=== PATIENT | male | born 1955 | race Caucasian/White ===

== ENCOUNTER 2022-07-16 00:45 | Day surgery (SDC) | payer MEDICARE, SELFPAY ==
[2022-07-16] VITALS (10 sets, daily range): BP systolic 114–133; BP diastolic 75–86; PULSE 50–68; RESP 13–23; TEMP 36.2–36.6; O2SAT 96–99; BMI 35.2
[2022-07-16 09:12] LABS: Basophils Absolute Auto 0.1 K/mm3 (0.0-0.1); Basophils Percent Auto 0.6 % (0.2-1.2); Eosinophils Absolute Auto 0.3 K/mm3 (0-0.3); Eosinophils Percent Auto 3.9 % (0-4.4); Hemoglobin 15.2 g/dL (14.0-18.0); Immature Granulocyte Absolute 0.02 K/mm3 (0.00-0.031); Immature Granulocyte Percent A 0.2 % (0-0.5); Lymphocytes Absolute Auto 2.09 K/mm3 (0.9-3.2); Lymphocytes Percent Auto 25.5 % (18.3-44.2); Mean Corpuscular Hemoglobin 30.1 pg (26-34); Mean Corpuscular Volume 91.1 fl (80-100); Mean Platelet Volume 9.9 fl (7.4-10.4); Monocytes Absolute Auto 0.7 K/mm3 (0.1-0.6); Monocytes Percent Auto 8.9 % (2.6-8.5); Neutrophils Percent Auto 60.9 % (45.5-73.1); Platelet Count Result 214 k/mm3 (150-375); Red Blood Count 5.05 M/mm3 (4.6-6.20); Red Cell Distribution Width 13.1 % (11.5-14.5); White Blood Count 8.2 K/mm3 (4.5-10.0)
[2022-07-16 09:19] LABS: Anion Gap 14 mmol/L (8-16); Blood Urea Nitrogen 19 mg/dL (9-20); Calcium 8.7 mg/dL (8.4-10.2); Carbon Dioxide 25 mmol/L (22-30); Chloride 105 mmol/L (98-107); Estimated CRCL calculation 89 ml/min; Estimated Glomerular Filt Rate > 60; Glucose 117 mg/dL (65-110); Sodium 144 mmol/L (137-145)
--- NOTE | 2022-07-16 10:39 | WPDCARDPROC ---
Cardiac Cath Procedure Note Date of procedure:: 07/16/22 Performing physician:: Mike Buenrostro MD Indication:: Abnormal nuclear stress test coronary artery disease with previous PCI Brief clinical history:: this is a 66-year-old man with known coronary disease previous interventional revascularization. He is reporting symptoms of exertional dyspnea occasionally with some chest pain which seems to occur in in consistent fashion. A nuclear stress test was done in the outpatient setting which demonstrated apical lateral ischemic defect prompting recommendation for follow-up angiography. Procedure Procedure performed:: Left ventriculogram coronary angiogram Angio-Seal to right femoral artery Sedation/Medication given:: fentanyl 50 mg Versed 2 mg case start time 10:13 a.m. case end time 10:32 a.m. sedation provided by Anay Rice RN, trained observer Access site:: right femoral artery Estimated blood loss:: 50 cc Procedure note:: patient was brought to the cardiac catheterization lab in the postabsorptive state where the right femoral triangle was prepared and draped in the usual fashion. Anesthesia was provided with 1% lidocaine infiltrated locally. Using the modified Seldinger technique the femoral artery was punctured and a 5 [place] vascular sheath was placed. After this left heart catheterization was carried out using a 5 [place] angled pigtail catheter for measurement of left-sided hemodynamics and to inject in the left ventriculogram in the are AO projection. Following this a 5 [place] FL4 catheter was used to engage inject the left coronary artery in multiple projections and then a 5 [place] JR4 catheter was used engage inject the right coronary artery in multiple projections. The cineangiograms were then reviewed. The case was then terminated. An angiogram was done of the femoral artery through the sheath after which an Angio-Seal device was deployed with a good hemostatic result. Procedure was well tolerated and there were no apparent complications. 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 Findings:: Hemodynamics: Central aortic pressure was 118 over 72 left ventricle 118 over 8 end-diastolic pressure 18. No gradient on the aortic valve was seen on pullback. Left ventricle: The left ventricle is normal in size all segments contract appropriately the global ejection fraction is 55-60% by visual estimation the left main coronary artery is medium in caliber and is nicely patent the left anterior descending is a medium caliber artery extending down to the apex. There is previously deployed stent material in the LAD and this appears to be nicely patent. There is an eccentric stenosis in the LAD just proximal to this stented segment that in the CHOUDHARY caudal projection is moderate, 70-80% stenosis in all other projections this appears to be trivial. Angiographically this is unchanged comparison to his last procedure in 2019. The diagonal branch which has its origin in the vicinity the of the stent also has a proximal 80% stenosis and is angiographically on also unchanged comparison to 2019. The circumflex is a medium caliber vessel giving rise to only 1 significant marginal branch. There is stent material in the proximal circumflex which remains nicely patent. There is no significant stenosis in the circumflex leading into the OM the right coronary artery is large caliber and dominant to the posterior circulation there is proximal stent material in the RCA which again remains nicely patent with no loss of lumen. The are PDA and RPL branches are relatively small there is an 80-90% stenosis in the proximal portion of the RPDA which does represent some progressive disease compared to 2019. The vessel however is about 2 mm diameter vessel. There is AVNI 3 flow in the RPDA. Conclusion:: 1. Right coronary dominant circulation with previously deployed stents in the proximal LAD, p
[2022-07-16] MEDS: SODIUM CHLORIDE 0.9% IV 500 ML 100 ML IV CONT (10:43)
--- NOTE | 2022-07-16 11:28 | SUR.PHASEII ---
1100 patient was offered to order a heart healthy diet meal tray but he declined. He prefers to wait to eat until he is discharged.
--- NOTE | 2022-07-16 14:19 | SUR.PHASEII ---
Patient discharged to private vehicle with Shefali driving at 1350. We stopped by [facility] office prior to leaving to get a 1 month follow up per Dr. Buenrostro's verbal recommendation. Patient and had no further questions regarding discharge instructions and follow up. Patient denied any concerns or signs or symptoms. Right femoral groin site dressing c/d/i. Per Dr. Buenrostro's verbal order patient is to wait 1 week to resume Xarelto 2.5 mg PO daily. They verbalized understanding to wait to resume Xarelto 2.5 mg PO daily on Saturday07/23/22.
== END 2022-07-16 13:50 | disposition home or self-care (01) ==
PROVIDERS: PCP Internal Medicine Geriatric Medicine; Visit Provider Specialist
PROC: 4A023N7 Measurement of Cardiac Sampling and Pressure, Left Heart, Percutaneous Approach (ICD-10-PCS; CPT 93452; principal; 2022-07-16 10:00)
DX: I25.10 Atherosclerotic heart disease of native coronary artery without angina pectoris (principal); R06.00 Dyspnea, unspecified; R07.9 Chest pain, unspecified; I10 Essential (primary) hypertension
CPT/HCPCS: 36415; 80048; 85025; 93458; C1760; C1887; C1894; G0269; J1644; J2250; J3010; J7040